=== PATIENT | male | born 1970 | race Two or more races ===

== ENCOUNTER → 2021-07-18 | Outpatient (CLI) | payer OTHER | END | disposition home or self-care (01) | LOC: Rad HDHVI 14:53 | PROVIDERS: ATTEND Internal Medicine Cardiovascular Disease | DX: I47.1 Supraventricular tachycardia (principal) | CPT/HCPCS: 93306 ==

== ENCOUNTER → 2021-07-19 | Outpatient (CLI) | payer OTHER ==
[~2021-07-19] VITALS: Ht 177.8 cm; Wt 95.3 kg
== END | disposition home or self-care (01) ==
LOC: Rad HDHVI 13:48
PROVIDERS: ATTEND Internal Medicine Cardiovascular Disease
DX: R00.2 Palpitations (principal); I10 Essential (primary) hypertension; R06.02 Shortness of breath
CPT/HCPCS: 78452; 93017; 96374; A9500

== ENCOUNTER → 2022-08-05 | Outpatient (CLI) | payer OTHER ==
[~2022-08-05] MED LIST: ALPR0.25 PO; FLE50T PO; METO25TA36 PO
[2022-08-05 08:23] VITALS: BP 149/80
[2022-08-05 08:35] VITALS: BP 141/77
[2022-08-05 12:17] LABS: Basophils # (auto) 0 10 ^3/uL (0-0.2); Basophils % (auto) 0.8 % (0.0-2.0); Eosinophils # (auto) 0.3 10 ^3/uL (0-0.8); Eosinophils % (auto) 4.4 % (0.0-7.0); Hematocrit 47.2 % (41.0-53.0); Hemoglobin 16.1 g/dL (13.5-17.5); Lymphocytes # (auto) 1.5 10 ^3/uL (0.4-5.4); Lymphocytes % (auto) 26.5 % (10.0-50.0); Mean Corpuscular Hemoglobin 29.5 pg (28.0-32.0); Mean Corpuscular Hgb Conc. 34.1 g/dL (32.0-36.0); Mean Corpuscular Volume 86.4 fL (80.0-100.0); Monocytes # (auto) 0.4 10 ^3/uL (0-1.3); Monocytes % (auto) 6.9 % (0.0-12.0); Neutrophils # (auto) 3.6 10 ^3/uL (1.6-8.6); Neutrophils % (auto) 61.4 % (37.0-80.0); Nucleated Red Blood Cells % 0.1 %; Red Blood Cells 5.46 10^6/uL (4.5-5.90); Red Cell Distribution Width 13.6 % (11.8-14.3); White Blood Cell 5.8 10^3/uL (4.4-10.8)
[2022-08-05 12:43] LABS: BUN/Creatinine Ratio 11.2; Calcium 9.4 mg/dL (8.5-10.1); Potassium 3.8 mmol/L (3.5-5.1)
[2022-08-05 12:51] LABS: INR 1.02 (0.9-1.15); Partial Thromboplastin Time 27.4 sec (24.6-33.4)
== END | disposition home or self-care (01) ==
LOC: Rad HDHVI 08:19
PROVIDERS: ATTEND Internal Medicine Cardiovascular Disease
DX: R06.02 Shortness of breath (principal)
CPT/HCPCS: 36415; 71046; 80048; 85025; 85610; 85730; 93005; G0463

== ENCOUNTER 2022-08-08 06:51 | Day surgery (SDC) | payer OTHER ==
[2022-08-08] VITALS (10 sets, daily range): BP systolic 104–133; BP diastolic 73–88
[~2022-08-08] VITALS: Ht 177.8 cm; Wt 93.0 kg
[2022-08-08] MEDS ORDERED: LIDOCAINE 2%HCL (LOCAL ANESTH.) INJ 20ML MDV ONE (07:43)
[2022-08-08] MEDS ORDERED: IOHEXOL 350 MG/ML 100ML IJ ONE (07:43)
[2022-08-08] MEDS ORDERED: ANGIOMAX 250 MG VIAL IV ONE (07:55)
[2022-08-08] MEDS ORDERED: SODIUM CHL 0.9% 0 ML ONE (07:56)
[2022-08-08] MEDS ORDERED: MIDAZOLAM HCL 2MG/2ML 2ml VIAL (1mg/ml) ONE (07:56)
[2022-08-08] MEDS ORDERED: fentaNYL CITRATE 100 MCG/2 ML VL ONE (07:56)
== END 2022-08-08 11:30 | disposition home or self-care (01) ==
LOC: CATH 06:51
PROVIDERS: ATTEND Internal Medicine Cardiovascular Disease
DX: R07.9 Chest pain, unspecified (principal); I47.0 Re-entry ventricular arrhythmia; R06.02 Shortness of breath; Z95.5 Presence of coronary angioplasty implant and graft; Z79.899 Other long term (current) drug therapy; Z20.822 Contact with and (suspected) exposure to COVID-19
CPT/HCPCS: 93458; C1760; C1769; C1894; J1644; J2250; J3010; J7030; Q9967; U0003; 99152

== ENCOUNTER → 2022-09-23 | Outpatient (CLI) | payer OTHER ==
[~2022-09-23] VITALS: Ht 177.8 cm; Wt 90.7 kg
[~2022-09-23] MED LIST changes: -FLE50T PO
== END | disposition home or self-care (01) ==
LOC: Rad HDHVI 08:14
PROVIDERS: ATTEND Internal Medicine Cardiovascular Disease
DX: I47.1 Supraventricular tachycardia (principal); I49.3 Ventricular premature depolarization; R00.2 Palpitations; R06.02 Shortness of breath; I10 Essential (primary) hypertension; R53.83 Other fatigue
CPT/HCPCS: 93017

== ENCOUNTER → 2024-07-15 | Outpatient (CLI) | payer OTHER ==
[~2024-07-15] VITALS: Ht 177.8 cm; Wt 101.6 kg
--- NOTE | 2024-07-28 14:18 | DVHSR ---
APPROVED REPORT EXAM: Two-dimensional and M-mode echocardiogram with Doppler and color Doppler. DIMENSIONS LVDd4.9 (3.8-5.7cm)LA (2D)4.0 (1.9-4.0cm)Aortic Root3.6 (2.0-3.7cm) LVDs3.1 (2.5-4.0cm)LA (MM) (1.9-4.0cm)Aortic Cusp Exc2.5 (1.5-2.0cm) EF (%) 67.3 (55-70%)Rt. Atrium3.8 (1.9-4.0cm)Asc. Aorta cm IVSd1.1 (0.7-1.1cm)RV (D)3.3 (1.8-2.4cm) PWd1.1 (0.7-1.1cm) Mitral Valve MitralMitral Stenosis E wave0.97m/sMV Mean GR.mmHg A wave0.65m/sMV Peak GR.mmHg E/A ratio1.52D MVAcm2 DECEL [id number] 1/2 Timems Aortic Valve Aortic ValveAortic Stenosis V11.00m/Randi Mean GR.3mmHg V21.16m/Randi Peak GR.5mmHg Pulmonic Valve V20.90m/s Tricuspid Valve [id number] LEFT VENTRICLE The Ejection Fraction is >55%. ATRIA The left atrial size is normal. The right atrium size is normal. MITRAL VALVE The mitral valve is normal in structure and function. Mitral regurgitation is trace. PULMONIC VALVE The pulmonic valve is not well visualized. TRICUSPID VALVE The tricuspid valve is grossly normal. AORTIC VALVE The aortic valve opens well. No aortic regurgitation is present. GREAT VESSELS The aortic root is normal size. PERICARDIAL EFFUSION There is no pericardial effusion. Conclusion EF >60%
== END | disposition home or self-care (01) ==
LOC: Rad HDHVI 14:06
PROVIDERS: ATTEND Internal Medicine Cardiovascular Disease
DX: I48.0 Paroxysmal atrial fibrillation (principal); I49.9 Cardiac arrhythmia, unspecified; I10 Essential (primary) hypertension; I47.10 Supraventricular tachycardia, unspecified; E78.00 Pure hypercholesterolemia, unspecified; R07.89 Other chest pain; R00.2 Palpitations; R06.02 Shortness of breath; R42 Dizziness and giddiness; Z98.890 Other specified postprocedural states
CPT/HCPCS: 93017; 93306

== ENCOUNTER → 2024-10-12 | Outpatient (CLI) | payer OTHER ==
[~2024-10-12] MED LIST changes: +AMIO200T33 PO; +MAGN100T9 PO; +POTA99TA3 PO; +TADA5TAB11 PO; +VALA500T33 PO; +ZINC50TA7 PO
[2024-10-12 09:15] VITALS: BP 132/76; PULSE 72; RESP 16; O2SAT 96
[2024-10-12 09:25] VITALS: BP 133/75; PULSE 70; RESP 16; O2SAT 96
--- NOTE | 2024-10-12 13:32 | DVH ---
EXAM: XY CHEST TWO VIEWS ROUTINE CLINICAL HISTORY: Pain COMPARISON: CXR2 on DOS: 08/05/22, CHEST TWO VIEWS ROUTINE on DOS: 08/05/22 TECHNIQUE: Frontal and lateral view of the chest was obtained FINDINGS: Lines and Tubes: None Lungs: No focal consolidation. Pleura: No effusion. No pneumothorax. Cardiomediastinal contours: Unremarkable Bones: No acute osseous abnormality. IMPRESSION: No acute cardiopulmonary disease.
== END | disposition home or self-care (01) ==
LOC: Rad HDHVI 09:00
PROVIDERS: ATTEND Internal Medicine Cardiovascular Disease
DX: Z01.818 Encounter for other preprocedural examination (principal); I44.5 Left posterior fascicular block; R94.31 Abnormal electrocardiogram [ECG] [EKG]; R00.2 Palpitations; R07.9 Chest pain, unspecified
CPT/HCPCS: 71046; 93005; G0463

== ENCOUNTER 2024-10-14 07:12 | Day surgery (SDC) | payer OTHER ==
[2024-10-12 11:16] LABS: Potassium 3.7 mmol/L (3.5-5.1); Sodium 142 mmol/L (136-145)
[2024-10-12 11:17] LABS: Anion Gap 8 (5-15); Carbon Dioxide 27 mmol/L (20-31)
[2024-10-12 11:18] LABS: Calcium 9.8 mg/dL (8.7-10.4)
[2024-10-12 11:22] LABS: BUN/Creatinine Ratio 14.5 (10.0-20.0); Blood Urea Nitrogen 17 mg/dL (9-23); Glucose 104 mg/dL (74-106); INR 1.03 (0.9-1.15); Partial Thromboplastin Time 28.4 SEC (24.5-34.5); Prothrombin Time 10.9 sec (9.3-11.8)
[2024-10-12 11:23] LABS: Chloride 107 mmol/L (98-107)
[2024-10-12 11:24] LABS: Basophils # (auto) 0 10 ^3/uL (0-0.2); Basophils % (auto) 0.7 % (0.0-2.0); Eosinophils # (auto) 0.5 10 ^3/uL (0-0.8); Eosinophils % (auto) 6.9 % (0.0-7.0); Hematocrit 46.4 % (41.0-53.0); Hemoglobin 15.9 g/dL (13.5-17.5); Lymphocytes # (auto) 1.6 10 ^3/uL (0.4-5.4); Lymphocytes % (auto) 23.7 % (10.0-50.0); Mean Corpuscular Hgb Conc. 34.4 g/dL (32.0-36.0); Mean Corpuscular Volume 87.3 fL (80.0-100.0); Monocytes # (auto) 0.6 10 ^3/uL (0-1.3); Monocytes % (auto) 8.9 % (0.0-12.0); Neutrophils # (auto) 3.9 10 ^3/uL (1.6-8.6); Neutrophils % (auto) 59.8 % (37.0-80.0); Nucleated Red Blood Cells % 0.1 %; Platelet Count (auto) 214 10^3/uL (140-450); Red Blood Cells 5.31 10^6/uL (4.5-5.90); Red Cell Distribution Width 14.1 % (11.8-14.3); White Blood Cell 6.5 10^3/uL (4.4-10.8)
[~2024-10-14] VITALS: Ht 177.8 cm; Wt 99.8 kg
[2024-10-14] MEDS: LIDOCAINE 2%HCL (LOCAL ANESTH.) INJ 20ML MDV ONE (10:33)
[2024-10-14] MEDS ORDERED: LIDOCAINE 2%HCL (LOCAL ANESTH.) INJ 20ML MDV ONE (10:50)
[2024-10-14] MEDS: MIDAZOLAM HCL 2MG/2ML 2ml VIAL (1mg/ml) IV ONE (11:00)
[2024-10-14] MEDS: fentaNYL CITRATE 100 MCG/2 ML VL IV ONE (11:00)
[2024-10-14 11:20] VITALS: BP 142/87; PULSE 61; RESP 12; O2SAT 95
[2024-10-14 11:36] VITALS: BP 153/87; PULSE 69; RESP 12; O2SAT 95
--- NOTE | 2024-10-14 11:39 | DVHDS ---
DATE OF DISCHARGE: 10/14/2024 DISCHARGE DIAGNOSES: * The patient with atrial fibrillation. * Status post AFib ablation. * Now with symptoms of palpitation. HOSPITAL COURSE: The patient underwent loop recorder to determine the type of arrhythmia that the patient is experiencing. Holter monitor failed to document any episodes, but then again during the Holter period, the patient did not have any symptoms. Computer Repairer recommended a loop recorder insertion. Loop record was inserted at this time. We will continue to follow the patient. Stable at the time of discharge. DISPOSITION: Home. ACTIVITY: As directed. DIET: 2 gram sodium diet. Raymond Camargo MD SA/CHAN TID: [id number] RECEIPT: [id number]
--- NOTE | 2024-10-14 11:40 | DVHOP ---
DATE OF SURGERY: 10/14/2024 PROCEDURES PERFORMED: * Loop recorder insertion. * Conscious sedation and local anesthesia given. DESCRIPTION OF PROCEDURE: The patient was prepped and draped under sterile condition. A 1% Xylocaine used to anesthetize the left anterior chest wall. Just at the fourth and fifth intercostal space, 20 mL of 2% lidocaine was used to anesthetize the local lesion. Then, small incision was used using the incision device from the loop recorder. The pocket was created using blunt dissection. Once it was done, we inserted the loop recorder in the fifth and fourth rib spaces. Incision site was then sealed using surgical deana. There were no complications. The patient tolerated the procedure well. CONCLUSION: The patient had successful implantation of [employer] loop recorder under local anesthesia and conscious sedation. Raymond Camargo MD SA/DEION TID: [id number] RECEIPT: [id number]
[2024-10-14 11:51] VITALS: BP 149/88; PULSE 66; RESP 17; O2SAT 95
--- NOTE | 2024-10-14 11:59 | DVHHP ---
ADMIT DATE: 10/14/2024 HISTORY OF PRESENT ILLNESS: The patient is a 54-year-old with a history of atrial fibrillation, status post ablation, now having increasing symptoms of palpitation. He was seen by his registered representative who did the ablation. He recommended that a loop recorder be placed since the patient is continuing to experience some palpitations and he is on amiodarone. FAMILY HISTORY: Significant for father and mother with coronary artery disease. SOCIAL HISTORY: He denies any tobacco use or alcohol use. PERTINENT MEDICAL HISTORY: He is currently on amiodarone and anticoagulation. He denies any syncopal episode. No melena, hematochezia, hematemesis or hemoptysis. No rheumatologic disorders. No history of any connective tissue disorders. Also, no history of any seizures, TIA or CVA. No history of any movement. No history of any liver disease. No kidney disease. No history of any GI symptoms such as constipation, diarrhea, irritable bowel syndrome or inflammatory bowel disease. PHYSICAL EXAMINATION: VITAL SIGNS: Blood pressure is 122/80, pulse of 60, O2 saturation 98% on room air. HEENT: Pupils are equal and reactive. NECK: Supple. Carotid pulses are 2+ and symmetrical. PULMONARY: Clear to auscultation. CARDIOVASCULAR: Regular rate without S3, without S4. PMI is nondisplaced. ABDOMEN: Soft, nontender. Normal bowel sounds. SKIN: Unremarkable. EXTREMITIES: 2+ pulses. NEUROLOGIC: The patient is intact. ASSESSMENT AND PLAN: * Atrial fibrillation, paroxysmal, status post radiofrequency ablation. * Hypocoagulable state, on anticoagulation, now again having palpitations. Electrophysiology consultation showed patient needs a loop recorder to determine whether truly has A-fib or some PVCs, PACs. Therefore, I will proceed with a loop recorder implantation. We will make further recommendations after. Raymond Camargo MD SA/SLOANE TID: [id number] RECEIPT: [id number]
--- NOTE | 2024-10-14 12:01 | DVH ---
XY CHEST PORTABLE, HISTORY: S/P LOOP Recorder Implant COMPARISON: None None TECHNICAL DATA: 1 view of the chest was obtained. FINDINGS: Lines and tubes: A loop recorder projects over the heart. Cardiomediastinal silhouette: normal Pulmonary vasculature: normal Lung expansion: normal Lung airspace: normal Lung interstitium: normal Pleura: normal Pneumothorax: no Bones: Unremarkable Other: no IMPRESSION: No acute intrathoracic abnormality. A loop recorder projects over the heart.
[2024-10-14 12:06] VITALS: BP 143/87; PULSE 66; RESP 20
[2024-10-14 12:21] VITALS: BP 142/85; PULSE 62; RESP 20
[2024-10-14 12:50] VITALS: BP 149/92; PULSE 67; RESP 14
== END 2024-10-14 13:11 | disposition home or self-care (01) ==
LOC: CATH 07:12
PROVIDERS: ATTEND Internal Medicine Cardiovascular Disease
DX: I48.0 Paroxysmal atrial fibrillation (principal); Z79.01 Long term (current) use of anticoagulants; Z79.899 Other long term (current) drug therapy; Z98.890 Other specified postprocedural states; Z82.49 Family history of ischemic heart disease and other diseases of the circulatory system
CPT/HCPCS: 33285; 36415; 71045; 80048; 85025; 85610; 85730; C1764; J2250; J3010; J7040; 99152